=== PATIENT | male | born 1950 | race American Indian/Alaskan Native ===

== ENCOUNTER 2019-05-29 11:49 | Emergency (ER) | payer BC, OTHER ==
--- NOTE | 2019-05-29 14:02 | Event Note ---
ED Screening Note Date of service: 05/29/19 ED Screening Note: This initial assessment/diagnostic orders/clinical plan/treatment(s) is/are subject to change based on patients health status, clinical progression and re- assessment by fellow clinical providers in the ED. Further treatment and workup at subsequent clinical providers discretion. Patient/guardian urged not to elope from the ED as their condition may be serious if not clinically assessed and managed. Initial orders include:
[2019-05-29 15:06] LABS: Basophils # (Auto) 0.1 K/mm3 (0.0-0.1); Basophils % (Auto) 0.6 % (0.0-1.8); Hematocrit 35.1 % (35.5-45.6); Hemoglobin 11.7 gm/dl (11.8-15.2); Lymphocytes % (Auto) 8.3 % (13.4-35.0); Mean Corpuscular HGB Conc 33 % (32-34); Mean Corpuscular Volume 79 fl (84-94); Monocytes # (Auto) 0.9 K/mm3 (0.0-0.8); Monocytes % (Auto) 7.9 % (0.0-7.3); Platelet Count 227 K/mm3 (140-440); Red Blood Count 4.44 M/mm3 (3.65-5.03); Red Cell Distribution Width 16.1 % (13.2-15.2)
[2019-05-29 15:26] LABS: Calcium 9.5 mg/dL (8.4-10.2)
--- NOTE | 2019-05-29 15:31 | XRay Report ---
LEFT ANKLE 2 VIEWS INDICATION: pain ankle gout. COMPARISON: None. IMPRESSION: There is moderate to severe soft tissue swelling. There is a subtle mildly displaced fr acture line identified in the medial hindfoot on the frontal view only. This appears to involve the c alcaneus. The remaining bony structures are grossly intact. Mild osteoarthritic changes and small sirena nt effusion are noted. Please correlate with the patient and consider further imaging with CT. Signer Name: Noah Mcnamara Jr, MD Signed: 05/29/2019 3:27 PM Workstation Name: [id number]
--- NOTE | 2019-05-29 16:57 | Emergency Department Report ---
ED General Adult HPI - General Chief complaint: Extremity Problem,Nontraumatic Stated complaint: PAIN IN BOTH FEET Time Seen by Provider: 05/29/19 16:39 Source: patient Mode of arrival: Wheelchair Limitations: No Limitations - History of Present Illness Initial comments: Patient is a 69-year-old male presents to emergency room with complaints of left ankle and foot pain that began as night. He denies any fall or injury. He states that about 2 weeks ago he was treated for gout on the right side and after treatment it became better. He denies any fever. He denies any nausea, vomiting, diarrhea. He is ambulatory. He states that he does not have a primary care physician. He states that he occasionally he receives care at [facility]. He has a past medical history of hypertension and CKD. he was previously seeing a apparel patternmaker but has not been in "awhile." - Related Data Previous Rx's Medication Instructions Recorded Last Taken Type predniSONE [Deltasone] 40 mg PO DAILY 7 Days #14 tablet 05/29/19 Unknown Rx Allergies Allergy/AdvReac Type Severity Reaction Status Date / Time No Known Allergies Allergy Unverified 05/29/19 11:54 ED Review of Systems ROS: Stated complaint: PAIN IN BOTH FEET Other details as noted in HPI Comment: All other systems reviewed and negative ED Past Medical Hx - Past Medical History Previous Medical History?: Yes Hx Hypertension: Yes Hx Renal Disease: Yes - Social History Smoking Status: Never Smoker Substance Use Type: None - Medications Home Medications: Home Medications Medication Instructions Recorded Confirmed Last Taken Type predniSONE [Deltasone] 40 mg PO DAILY 7 Days #14 tablet 05/29/19 Unknown Rx ED Physical Exam - General Limitations: No Limitations General appearance: alert, in no apparent distress - Head Head exam: Present: atraumatic, normocephalic - Eye Eye exam: Present: normal appearance - ENT ENT exam: Present: mucous membranes moist - Extremities Exam Extremities exam: Present: other (no bony TTP of the right foot or ankle, no TTP over the right calcaneus, pt has discomfort upon movement of the right ankle but has FROM, edema present in the right ankle, no erythema, mild increased warmth, neurovascularly intact) - Neurological Exam Neurological exam: Present: alert, oriented X3 - Psychiatric Psychiatric exam: Present: normal affect, normal mood - Skin Skin exam: Present: warm, dry, intact ED Course Vital Signs 05/29/19 05/29/19 11:59 13:32 Temperature 99.0 F 99 F Pulse Rate 96 H 93 H Respiratory 18 18 Rate Blood Pressure 124/91 124/91 O2 Sat by Pulse 100 99 Oximetry ED Medical Decision Making - Lab Data Result diagrams: 05/29/19 14:47 05/29/19 14:47 - Radiology Data Radiology results: report reviewed LEFT ANKLE 2 VIEWS INDICATION: pain ankle gout. COMPARISON: None. IMPRESSION: There is moderate to severe soft tissue swelling. There is a subtle mildly displaced fracture line identified in the medial hindfoot on the frontal view only. This appears to involve the calcaneus. The remaining bony structures are grossly intact. Mild osteoarthritic changes and small joint effusion are noted. Please correlate with the patient and consider further imaging with CT. Signer Name: Noah Mcnamara Jr, MD Signed: 05/29/2019 3:27 PM Workstation Name: [id number] Transcribed By: TTR Dictated By: NOAH MCNAMARA JR, MD Electronically Authenticated By: NOAH MCNAMARA JR, MD Signed Date/Time: 05/29/19 1527 DD/ 1525 TD/TT: - Medical Decision Making Patient is a 69-year-old male presents to emergency room with complaints of left ankle and foot pain that began as night. He denies any fall or injury. He states that about 2 weeks ago he was treated for gout on the right side and after treatment it became better. He denies any fever. He denies any nausea, vomiting, diarrhea. He is ambulatory. He states that he does not have a primary care physician. He states that he occasionally he receives care at [facility]. He has a past medical history of hypertension and CKD. he was previously seeing a apparel patternmaker but has not been in "awhile." VSS. on exam: no bony TTP of the right foot or ankle, no TTP over the right calcaneus, pt has discomfort upon movement of the right ankle but has FROM, edema present in the right ankle, no erythema, mild increased warmth, neurovascularly intact. XR left ankle: There is moderate to severe soft tissue swelling. There is a subtle mildly displaced fracture line identified in the medial hindfoot on the frontal view only. This appears to involve the calcaneus. The remaining bony structures are grossly intact. Mild osteoarthritic changes and small joint effusion are noted. Please correlate with the patient and consider further imaging with CT. pt does not have any bony TTP in this region, he has been ambulatory, will refer to orthopedic/foot and ankle specialist. symptoms could be related to gout, will tx pt with prednisone. does not appear to be septic joint. cannot give colchicine or indomethacin secondary to CKD. advised to take tylenol for pain. pts kidney function is at baseline, it appears to have improved from last visit, on 04/27 on this encounter his cr 2.7, BUN 33, GFR 28. will refer pt to apparel patternmaker for outpatient management. advised pt to please take medication as prescribed. may take tylenol as needed for pain. Please follow up with a primary care doctor. Please follow-up with a apparel patternmaker. Please follow up with orthopedic or foot and ankle specialist. May use ice for 15 minutes at a time. Elevation of the leg. Return to the emergency room for any new or worsening symptoms - Differential Diagnosis gout, arthritis, RA, CKD, septic joint Critical care attestation.: If time is entered above; I have spent that time in minutes in the direct care of this critically ill patient, excluding procedure time. ED Disposition Clinical Impression: Edema of right ankle, Right foot pain Right ankle pain Qualifiers: Chronicity: acute Qualified Code(s): M25.571 - Pain in right ankle and joints of right foot Gout Qualifiers: Gout site: ankle Gout etiology: unspecified cause Chronicity: acute Laterality: right Qualified Code(s): M10.9 - Gout, unspecified Disposition: TO HOME OR SELFCARE Is pt being admited?: No Does the pt Need Aspirin: No Condition: Stable Instructions: Acute Gouty Arthritis (ED), Arthralgia (ED) Additional Instructions: Please take medication as prescribed. may take tylenol as needed for pain. Please follow up with a primary care doctor. Please follow-up with a apparel patternmaker. Please follow up with orthopedic or foot and ankle specialist. May use ice for 15 minutes at a time. Elevation of the leg. Return to the emergency room for any new or worsening symptoms. Prescriptions: predniSONE [Deltasone] 40 mg PO DAILY 7 Days #14 tablet Referrals: PORSHA NAVARRETE MD [Staff Physician] - 2-3 Days [facility] YUEN MD [Staff Physician] - 2-3 Days LEOBARDO WRIGHT DPM [Staff Physician] - 2-3 Days HARRIET POWER MD [Staff Physician] - 2-3 Days Time of Disposition: 16:58 Print Language: TOGOLESE
[2019-05-29 17:13] VITALS: BP 131/87
== END 2019-05-29 17:18 | disposition home or self-care (01) ==
LOC: ED 11:49
DX: R60.9 Edema, unspecified (principal); M25.571 Pain in right ankle and joints of right foot; M10.9 Gout, unspecified; I10 Essential (primary) hypertension; N28.9 Disorder of kidney and ureter, unspecified; Z79.899 Other long term (current) drug therapy
CPT/HCPCS: 36415; 80048; 85025